=== PATIENT | male | born 1955 | race Caucasian/White ===

== ENCOUNTER → 2018-07-22 09:46 | Outpatient (CLI) | payer MEDICARE, SELFPAY ==
[2018-07-22 11:02] LABS: Add Manual Diff / Slide Review NO; Basophils Percent Auto 0.7 % (0-2); Eosinophils Percent Auto 2.7 % (2-4); Hematocrit 48.8 % (41-53); Hemoglobin 17.1 g/dL (13.5-17.5); Lymphocytes Percent Auto 21.6 % (25-40); Mean Corpuscular HGB Conc 35.1 % (30-36); Mean Corpuscular Hemoglobin 32.4 PG (26-34); Mean Corpuscular Volume 92.4 fL (80-100); Monocytes Percent Auto 7.2 % (3-14); Neutrophils Absolute Auto 4700 /uL (3000-5900); Neutrophils Percent Auto 67.8 % (50-75); Platelet Count 145 X10^3/uL (150-400); Red Blood Cell Count 5.28 X10^6/uL (4.5-5.9); Red Cell Distribution Width 13.1 % (11.6-14.8)
[2018-07-22 11:35] LABS: Blood Urea Nitrogen 17 mg/dL (9-20); Calcium 9.3 mg/dL (8.4-10.2); Carbon Dioxide 28 mmol/L (22-32); Chloride 100 mmol/L (98-107); Cholesterol 183 mg/dL (140-199); Estimated Glomerular Filt Rate > 60.0 mL/min (>60); Glucose 137 mg/dL (80-110); HDL Cholesterol 54 mg/dL (40-60); HEMOLYSIS < 15 (0-50); LDL Cholesterol Calculated 111 mg/dL (<100); Sodium 140 mmol/L (137-145); Triglycerides 91 mg/dL (35-150)
[2018-07-22 11:56] LABS: Thyroid Stimulating Hormone 3.15 uIU/mL (0.47-4.68)
== END ==
PROVIDERS: PCP Student in an Organized Health Care Education/Training Program; Visit Provider Internal Medicine Cardiovascular Disease
DX: Z00.00 Encounter for general adult medical examination without abnormal findings (principal); I49.1 Atrial premature depolarization; R00.1 Bradycardia, unspecified; Z13.220 Encounter for screening for lipoid disorders
CPT/HCPCS: 36415; 80048; 80061; 84443; 85025

== ENCOUNTER 2018-11-12 09:40 | Day surgery (SDC) | payer MEDICARE, SELFPAY ==
[2018-11-12] MEDS: SODIUM CHLORIDE 0.9% 1,000 ML 200 ML IV (10:03)
[2018-11-12 10:18] VITALS: BP 121/77; PULSE 56; RESP 18; TEMP 37.2; O2SAT 98; BMI 23.8
--- NOTE | 2018-11-12 10:58 | PM.HP.1 ---
History of Present Illness Date Patient Seen: 11/12/18 Time Patient Seen: 10:59 Chief complaint: [id number] Colonoscopy Narrative: The patient is a gentleman here for a screening colonoscopy. Last exam was 11 or 12 years ago. No family history of colon cancer. Does not believe he has ever had polyps. Patient History Medical History CRPS (complex regional pain syndrome) (Chronic 2014) Glaucoma (Chronic Unknown) Hypertension (Chronic 2013) Foot pain (Resolved 2014) Fractures (Resolved 2014) Surgical History History of ankle surgery (Resolved 2014) History of back surgery (Resolved 2015) Hx of foot surgery (Resolved 2016) Family History Father Cancer Mother Diabetes mellitus Social History household members: spouse Smoking Status: Never smoker alcohol intake: current (2 beers/day) substance use type: does not use Family & Social History Family History Father Cancer Mother Diabetes mellitus Social History: household members spouse Tobacco & Substance use: Smoking Status Never smoker alcohol intake current Meds Home Medications Medication Instructions Recorded Confirmed Type latanoprost 1 drp OP SEE INSTRUCTIONS #0 11/13/17 11/12/18 History atenolol 50 mg tablet 50 mg PO DAILY #90 tab 05/09/18 11/12/18 Rx hydrochlorothiazide 25 mg tablet 25 mg PO DAILY #90 tab 09/05/18 11/12/18 Rx Allergies Allergy/AdvReac Type Severity Reaction Status Date / Time No Known Drug Allergies Allergy Verified 11/12/18 10:03 Review of Systems Review of Systems All systems reviewed & are unremarkable except as noted in HPI and below Eyes Comments: glaucoma Cardiovascular Comments: chronic hypertension Neurologic Comments: 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 Eyes nonicteric lungs are clear to auscultation. Heart regular rate and rhythm without murmur gallop. Abdomen is scaphoid soft nontender without mass. Patient is alert and oriented x3. Assessment & Plan Assessment & Plan narrative: Patient for a screening exam. I have discussed the procedure and the rationale with the patient including risks of bleeding, perforation which would necessitate a major operation, failure to find remove all lesions and the potential to tattoo. They appeared to understand and wished to proceed.
--- NOTE | 2018-11-12 11:01 | PM.PREOP ---
Pre-operative Note Interval Note History & Physical reviewed/Exam performed by Physician: Yes Changes to H&P: No ASA Class (for procedural sedation): II
--- NOTE | 2018-11-12 11:40 | PM.OP.ENDO ---
Operative Date/Time/Diagnoses Date of procedure: 11/12/18 Time of procedure: 11:41 Pre-op diagnosis: Screening examination Post-op diagnosis: same ( diane diverticulosis. Few in number.) Procedure & Clinicians Study performed: Colonoscopy Same procedure as scheduled: Yes Indications: screening Surgeon: Triston Tijerina Procedure Notes SCOAP/Timeout: performed Procedure in detail: The patient was placed in the left lateral decubitus position and underwent IV sedation directed by the surgeon consisting of fentanyl and Versed. Digital exam was unremarkable. The scope was inserted and advanced through the rectum into the sigmoid, descending, transverse, and ascending colon. the patient was noted to have scattered diverticuli throughout the colon. Many were quite wide mouth it. There were relatively few in number however.. The cecum was reached By applying pressure repositioning the patient inserting a stiffener. It was identified by the ileocecal valve and the appendiceal opening. The scope was gradually brought out. noPolyps were found. The scope ultimately was retroflexed in the rectum. The appearance was normal except for scarring on old hemorrhoidal disease.. The scope was removed and the patient tolerated the procedure well. Prep was good. Scope withdrawal time: Almost 7 min Sedation minutes: 35 Findings: diverticulosis ( occasional diane colonic.) Specimen(s): none sent Complications: none Recommendations: Colonscopy in 10 years Follow up: as needed Disposition: PACU
[2018-11-12] MEDS: fentaNYL 250 MCG/5 ML INJ IV (11:43)
[2018-11-12] MEDS: MIDAZOLAM 5 MG/5 ML VIAL IV (11:43)
[2018-11-12 11:45] VITALS: BP 114/67; PULSE 69; RESP 23; TEMP 36.8; O2SAT 97
[2018-11-12 11:51] VITALS: BP 109/71; PULSE 63; RESP 16; O2SAT 98
[2018-11-12 11:56] VITALS: BP 116/71; PULSE 60; RESP 16; O2SAT 99
[2018-11-12 12:11] VITALS: BP 104/65; PULSE 56; RESP 16; TEMP 37.1; O2SAT 98
== END 2018-11-12 12:30 | disposition home or self-care (01) ==
PROVIDERS: PCP Student in an Organized Health Care Education/Training Program; Visit Provider Specialist
PROC: 0DJD8ZZ Inspection of Lower Intestinal Tract, Via Natural or Artificial Opening Endoscopic (ICD-10-PCS; CPT 45378; principal; 2018-11-12 10:45)
DX: Z12.11 Encounter for screening for malignant neoplasm of colon (principal); K57.30 Diverticulosis of large intestine without perforation or abscess without bleeding; I10 Essential (primary) hypertension
CPT/HCPCS: G0121; 99152; 99153; J2250; J3010

== ENCOUNTER → 2020-10-15 10:42 | Outpatient (CLI) | payer MEDICARE, SELFPAY ==
[2020-10-15 11:41] LABS: Cholesterol 181 mg/dL (140-199); HDL Cholesterol 55 mg/dL (40-60); LDL Cholesterol Calculated 106 mg/dL (<100); Triglycerides 98 mg/dL (35-150)
[2020-10-15 15:35] LABS: Prostate Specific Antigen Scrn 0.699 ng/mL (0.1-4.0)
== END ==
PROVIDERS: PCP Student in an Organized Health Care Education/Training Program; Referring Provider Internal Medicine Cardiovascular Disease; Visit Provider Internal Medicine Cardiovascular Disease
DX: I10 Essential (primary) hypertension (principal); Z12.5 Encounter for screening for malignant neoplasm of prostate; E78.5 Hyperlipidemia, unspecified
CPT/HCPCS: 36415; 80061; G0103

== ENCOUNTER → 2021-09-12 13:52 | Outpatient (CLI) | payer MEDICARE, SELFPAY ==
[2021-09-12 17:35] LABS: COVID19 -Nasal RAPID Negative (Negative)
== END ==
PROVIDERS: PCP Student in an Organized Health Care Education/Training Program; Referring Provider Physician Assistant; Visit Provider Physician Assistant
DX: Z01.812 Encounter for preprocedural laboratory examination (principal); Z20.822 Contact with and (suspected) exposure to COVID-19
CPT/HCPCS: 87635; C9803

== ENCOUNTER 2021-09-13 06:34 | Day surgery (SDC) | payer MEDICARE, SELFPAY ==
[2021-09-13 07:24] VITALS: BP 130/81; PULSE 65; RESP 18; TEMP 36.7; O2SAT 97; BMI 22.6
[2021-09-13] MEDS: CATARACT EYE COMPOUND (10 DROPS/SYRINGE) 3 DROPS EYE-OP (07:55)
[2021-09-13] MEDS: PROPARACAINE 0.5% OPHTH SOL 2 DROPS EYE-OP (07:55)
--- NOTE | 2021-09-13 09:00 | PM.PREOP ---
Pre-operative Note Interval Note History & Physical reviewed/Exam performed by Physician: Yes Changes to H&P: No
--- NOTE | 2021-09-13 09:00 | PM.PREOP ---
Pre-operative Note Interval Note History & Physical reviewed/Exam performed by Physician: Yes Changes to H&P: No
--- NOTE | 2021-09-13 09:00 | PM.OP.1 ---
Operative Date/Time/Diagnoses Pre-op diagnosis: Nuclear cataract right eye Procedure & Clinicians Procedure: Cataract Surgery Same procedure as scheduled: Yes Surgeon: Seth Vazquez Anesthesia Type: MAC +/- and Sedation Operative Notes Procedure in detail: Patient brought to the operating suite. Tetracaine drops placed in the right eye. Patient was prepped and draped in sterile manner. Wire lid speculum was placed in the eye. Betadine drops were placed on the eye. This was irrigated. Lidocaine jelly was placed on the eye. A paracentesis port was created with a side-port blade. 0.1 mL 1% preservative free lidocaine was injected into the anterior chamber. The anterior chamber was deepened with viscoelastic. 2.6 mm keratome was used to create a temporal clear corneal incision. Cystotome and Utrata forceps were used to create continuous tear capsulorrhexis. Balanced salt solution was used to hydro dissect the nucleus. The phacoemulsification handpiece was inserted and the nucleus was removed using the stop and chop technique. The irrigation aspiration handpiece was inserted and the remaining cortex was removed. Anterior chamber was deepened with viscoelastic. An Jama DIB00 intraocular lens with a power of 14.0 was injected into the capsular bag. Irrigation aspiration handpiece was inserted and the remaining viscoelastic was removed. Incision was hydrated with balanced salt solution and found to be leak free with pressure with Weck-Jill sponges. 0.1 mL Vigamox injected anterior chamber. 0.3 mL Kenalog 10 mg was injected subconjunctivally. Lid speculum was removed. The patient left the operating room in excellent condition. Complications: none Post-operative Condition: stable Disposition: same day surgery
[2021-09-13] MEDS: HYALURONATE SODIUM 30 MG-10 MG/ML SYRINGES 1 BOX INTRAOCULA (09:15)
[2021-09-13] MEDS: MOXIFLOXACIN INJ 4 MG/0.8 ML VIAL 0.5 MG EYE-OP (09:15)
[2021-09-13] MEDS: LIDOCAINE 2% (GLYDO) 6 ML GEL TOP (09:16)
[2021-09-13] MEDS: TETRACAINE 0.5% OPHTH DROPS 4 ML 2 DROPS EYE-OP (09:16)
[2021-09-13] MEDS: BALANCED SALT IRRIG SOLN NO.2 500 ML, EPINEPHrine 1 MG IRR (09:16)
[2021-09-13] MEDS: TRIAMCINOLONE 50 MG/5 ML VIAL INJ (09:16)
[2021-09-13] MEDS: PHENYLEPHRINE/LIDOCAINE VIAL (OR) 0.2 ML EYE-OP (09:16)
[2021-09-13 09:25] VITALS: BP 104/67; PULSE 59; RESP 16; TEMP 36.9; O2SAT 99
--- NOTE | 2021-09-13 09:42 | SUR.PHASEII ---
Pt ready to go, ride called. Pt left in stable condition.
== END 2021-09-13 09:25 | disposition home or self-care (01) ==
LOC: OR 06:35
PROVIDERS: PCP Student in an Organized Health Care Education/Training Program; Referring Provider Ophthalmology; Visit Provider Ophthalmology
PROC: (CPT 66984; principal; 2021-09-13 08:45)
DX: H25.11 Age-related nuclear cataract, right eye (principal); I10 Essential (primary) hypertension
CPT/HCPCS: 66984; J0171; J2250; J3301

== ENCOUNTER → 2021-09-26 10:53 | Outpatient (CLI) | payer MEDICARE, SELFPAY ==
[2021-09-26 13:47] LABS: COVID19 -Nasal RAPID Negative (Negative)
== END ==
PROVIDERS: PCP Student in an Organized Health Care Education/Training Program; Referring Provider Ophthalmology; Visit Provider Ophthalmology
DX: Z20.822 Contact with and (suspected) exposure to COVID-19 (principal)
CPT/HCPCS: 87635; C9803

== ENCOUNTER 2021-09-27 08:19 | Day surgery (SDC) | payer MEDICARE, SELFPAY ==
[2021-09-27 08:58] VITALS: BP 127/63; PULSE 51; RESP 18; TEMP 37.1; O2SAT 99; BMI 22.9
[2021-09-27] MEDS: PROPARACAINE 0.5% OPHTH SOL 2 DROPS EYE-OP (09:14)
[2021-09-27] MEDS: CATARACT EYE COMPOUND (10 DROPS/SYRINGE) 3 DROPS EYE-OP (09:15)
--- NOTE | 2021-09-27 09:41 | SUR.OPER ---
Supine on eye stretcher, head on extension cradle secured with tape. Arms tucked at sides with blanket. Pillow under knees. Supine on eye stretcher, head on extension cradle secured with tape. Arms tucked at sides with blanket. Pillow under knees.
--- NOTE | 2021-09-27 09:47 | PM.PREOP ---
Pre-operative Note Interval Note Changes to H&P: No A/Plan RC Plan There are no non surgical alternatives. Deterioration of patient's condition is expected. Delay may result in more complex future surgery. Increased loss of function is expected
--- NOTE | 2021-09-27 09:55 | PM.OP.1 ---
Operative Date/Time/Diagnoses Pre-op diagnosis: Nuclear Cataract Left eye Post-op diagnosis: same Procedure & Clinicians Same procedure as scheduled: Yes Surgeon: Seth Vazquez Anesthesia Type: MAC +/- and Sedation Operative Notes Procedure in detail: Patient brought to the operating suite. Tetracaine drops placed in the left eye. Patient was prepped and draped in sterile manner. Wire lid speculum was placed in the eye. Betadine drops were placed on the eye. This was irrigated. Lidocaine jelly was placed on the eye. A paracentesis port was created with a side-port blade. 0.1 mL 1% preservative free lidocaine was injected into the anterior chamber. The anterior chamber was deepened with viscoelastic. 2.6 mm keratome was used to create a temporal clear corneal incision. Cystotome and Utrata forceps were used to create continuous tear capsulorrhexis. Balanced salt solution was used to hydro dissect the nucleus. The phacoemulsification handpiece was inserted and the nucleus was removed using the stop and chop technique. The irrigation aspiration handpiece was inserted and the remaining cortex was removed. Anterior chamber was deepened with viscoelastic. An Jama DIB00 intraocular lens with a power of 15.0 was injected into the capsular bag. Irrigation aspiration handpiece was inserted and the remaining viscoelastic was removed. Incision was hydrated with balanced salt solution and found to be leak free with pressure with Weck-Jill sponges. 0.1 mL Vigamox injected anterior chamber. 0.3 mL Kenalog 10 mg was injected subconjunctivally. Lid speculum was removed. The patient left the operating room in excellent condition. Complications: none Post-operative Condition: stable Disposition: same day surgery
[2021-09-27] MEDS: HYALURONATE SODIUM 30 MG-10 MG/ML SYRINGES 1 BOX INTRAOCULA (10:04)
[2021-09-27] MEDS: MOXIFLOXACIN INJ 4 MG/0.8 ML VIAL 0.5 MG EYE-OP (10:04)
[2021-09-27] MEDS: PHENYLEPHRINE/LIDOCAINE VIAL (OR) 0.2 ML EYE-OP (10:04)
[2021-09-27] MEDS: TETRACAINE 0.5% OPHTH DROPS 4 ML 2 DROPS EYE-OP (10:05)
[2021-09-27] MEDS: BALANCED SALT IRRIG SOLN NO.2 500 ML, EPINEPHrine 1 MG IRR (10:05)
[2021-09-27] MEDS: TRIAMCINOLONE 50 MG/5 ML VIAL INJ (10:05)
[2021-09-27] MEDS: LIDOCAINE 2% (GLYDO) 6 ML GEL TOP (10:06)
--- NOTE | 2021-09-27 10:11 | PM.PREOP ---
Assessment & Plan Plan There are no non surgical alternatives. Deterioration in patient's condition is expected without surgery. Delay may result in more complex future surgery
--- NOTE | 2021-09-27 10:44 | PM.PREOP ---
Pre-operative Note Interval Note History & Physical reviewed/Exam performed by Physician: Yes Changes to H&P: No Addendum Addendum Note: There are no non surgical alternatives. Deterioration of patient's condition is expected without surgery. Increased loss of function is expected without surgery. Delay may result in more complex future surgery.
[2021-09-27 10:55] VITALS: BP 115/69; PULSE 49; RESP 16; TEMP 36.6; O2SAT 99
--- NOTE | 2021-09-27 10:57 | SUR.PHASEII ---
Pt ready to go, no pain no nausea, steady when up. Left unit in stable condition.
== END 2021-09-27 10:45 | disposition home or self-care (01) ==
PROVIDERS: PCP Student in an Organized Health Care Education/Training Program; Referring Provider Ophthalmology; Visit Provider Ophthalmology
PROC: (CPT 66984; principal; 2021-09-27 10:15)
DX: H25.12 Age-related nuclear cataract, left eye (principal); I10 Essential (primary) hypertension
CPT/HCPCS: 66984; J0171; J2250; J3301

== ENCOUNTER → 2022-02-04 12:06 | Outpatient (CLI) | payer MEDICARE, SELFPAY ==
[2022-02-04 13:41] LABS: BUN Creatinine Ratio 15.8 (6-22); Blood Urea Nitrogen 15 mg/dL (9-20); Calcium 9.2 mg/dL (8.4-10.2); Carbon Dioxide 32 mmol/L (22-32); Chloride 100 mmol/L (98-107); Estimated Glomerular Filt Rate > 60 mL/min (>60); Glucose 103 mg/dL (80-110); HEMOLYSIS < 15 (0-50); Sodium 136 mmol/L (137-145)
== END ==
PROVIDERS: PCP Student in an Organized Health Care Education/Training Program; Referring Provider Student in an Organized Health Care Education/Training Program; Visit Provider Student in an Organized Health Care Education/Training Program
DX: I10 Essential (primary) hypertension (principal)
CPT/HCPCS: 36415; 80048

== ENCOUNTER → 2022-08-22 15:34 | Outpatient (CLI) | payer MEDICARE, SELFPAY ==
[2022-08-22 17:57] LABS: Prostate Specific Antigen Scrn 0.748 ng/mL (0.1-4.0)
== END ==
PROVIDERS: PCP Student in an Organized Health Care Education/Training Program; Referring Provider Student in an Organized Health Care Education/Training Program; Visit Provider Student in an Organized Health Care Education/Training Program
DX: Z12.5 Encounter for screening for malignant neoplasm of prostate (principal)
CPT/HCPCS: 36415; G0103